=== PATIENT | male | born 1985 | race African-American/Black ===

== ENCOUNTER 2020-01-25 12:09 | Emergency (ER) | payer SELFPAY ==
--- NOTE | 2020-01-25 13:04 | RAD REPORT ---
EXAM DESCRIPTION: CT - Stone Protocol - 01/25/2020 12:55 pm CLINICAL HISTORY: FLANK PAIN COMPARISON: No comparisons TECHNIQUE: Axial 3 mm thick images were obtained without oral or IV contrast. The qhlxz-cp-reys span s the entirety of the system including uppermost abdomen and lung bases. All CT scans are performed using dose optimization technique as appropriate and may include automated exposure control or mA/KV adjustment according to patient size. FINDINGS: Mild dilatation of the proximal right collecting system is present secondary to a 3 mm obs tructing calculus in the proximal right ureter. From a KUB projection the obstructing calculus is preethi ng the right lateral margin L3-4 disc space. No other obstructing or nonobstructing calculi. No left- sided hydronephrosis. No suspicious renal masses. Isodense masses and pyelonephritis are not excluded on a stone protocol CT scan. No significant adrenal finding. Contracted urinary bladder shows no dennis picious findings. Imaged portions of the liver, spleen and pancreas show no suspicious findings on non-contrast imaging . No gallbladder or biliary tree abnormality identified. No suspicious bowel findings. No hernia, mass or bulky lymphadenopathy noted. No free air, free fluid or inflammatory stranding. No significant bony abnormality. IMPRESSION: Mild hydronephrosis of the proximal right collecting system secondary to a 3 mm proximal ureter stone. Isodense masses and pyelonephritis are not excluded on stone protocol technique.
[2020-01-25 13:06] LABS: Absolute Lymphocytes (CBC) 2.3 K/uL (0.7-4.9); Hematocrit 41.2 % (39.6-49.0); Lymphocytes % 38.4 % (15.3-44.8); MPV 9.3 fL (7.6-11.3); RBC Red Blood Cell Count 4.62 M/uL (4.33-5.43)
[2020-01-25] MEDS ORDERED: ONDANSETRON 4 MG/2 ML VIAL ONE ×2 (13:12→16:54)
[2020-01-25] MEDS ORDERED: MORPHINE 4 MG/ML SYR ONE (13:12)
[2020-01-25] MEDS ORDERED: KETOROLAC 30 MG/ML INJ ONE (13:28)
[2020-01-25] MEDS ORDERED: TAMSULOSIN 0.4 MG SR CAP ONE (13:28)
[2020-01-25] MEDS ORDERED: MAGNESIUM SULFATE 1 gm IVPB 1 GM/100 ML BAG IV ONE (13:28)
[2020-01-25 13:35] LABS: Urine Bacteria <20 /HPF (NONE SEEN); Urine Culture Reflex Order NOT NEEDED; Urine RBC TNTC /HPF (NONE SEEN)
[2020-01-25 13:41] LABS: Bilirubin Direct 0.1 mg/dL (0-0.2); Bilirubin Total 0.6 mg/dL (0.2-1.0); Potassium 3.8 mmol/L (3.5-5.1); Protein, Total 7.9 g/dL (6.4-8.2)
[2020-01-25 14:16] LABS: Urine Blood 3+ (NEG); Urine Glucose NEGATIVE (NEG); Urine Protein 2+ (NEG); Urine Specific Gravity 1.025 (1.005-1.030)
[2020-01-25] MEDS ORDERED: MEPERIDINE HCL 50 MG/ML ONE (14:48)
--- NOTE | 2020-01-25 16:27 | ER ---
Nurse's Notes [facility] Name: Gautam Mensah Age: 34 yrs Sex: Male : 1985 Arrival Date: 01/25/2020 Time: 12:11 Bed 26 Private MD: Diagnosis: Calculus of ureter Presentation: 01/24 12:24 Chief complaint: Patient states: R flank pain with N/V for 1 day. Coronavirus screen: ll1 Client denies travel out of the [place] in the last 14 days. At this time, the client does not indicate any symptoms associated with coronavirus-19. Ebola Screen: Patient denies travel to an Ebola-affected area in the 21 days before illness onset. Initial Sepsis Screen: Does the patient meet any 2 criteria? No. Patient's initial sepsis screen is negative. Risk Assessment: Do you want to hurt yourself or someone else? Patient reports no desire to harm self or others. Onset of symptoms was January 25, 2020. 12:24 Method Of Arrival: Wheelchair ll1 12:24 Acuity: ADNIELLE 3 ll1 12:49 Initial Sepsis Screen: Does the patient have a suspected source of infection? No. ca1 Patient's initial sepsis screen is negative. Historical: - Allergies: 12:25 No Known Allergies; ll1 - PSHx: 12:25 Fracture repair right hand; ll1 - Immunization history:: Flu vaccine is not up to date. - Social history:: Smoking status: Patient denies any tobacco usage or history of. - Family history:: not pertinent. - Hospitalizations: : No recent hospitalization is reported. Screenin:30 Abuse screen: Denies threats or abuse. Denies injuries from another. Nutritional ca1 screening: No deficits noted. Tuberculosis screening: No symptoms or risk factors identified. Fall Risk IV access (20 points). Assessment: 12:30 General: Appears in no apparent distress. uncomfortable, Behavior is cooperative, ca1 appropriate for age. Pain: Complains of pain in right low back Pain does not radiate. Pain currently is 8 out of 10 on a pain scale. at worst was 10 out of 10 on a pain scale. Pain began 30 min ago. Is continuous. Neuro: Level of Consciousness is awake, alert, obeys commands, Oriented to person, place, time, situation. Cardiovascular: Heart tones S1 S2 present Capillary refill < 3 seconds Patient's skin is warm and dry. Respiratory: Airway is patent Respiratory effort is even, unlabored, Respiratory pattern is regular, symmetrical. GI: Abdomen is flat, non-distended, Bowel sounds present X 4 quads. Abd is soft and non tender X 4 quads. Reports nausea, vomiting. : No signs and/or symptoms were reported regarding the genitourinary system. EENT: No signs and/or symptoms were reported regarding the EENT system. Derm: Skin is intact, is healthy with good turgor, Skin is pink, warm \T\ dry. 12:30 Musculoskeletal: Circulation, motion, and sensation intact. Capillary refill < 3 ca1 seconds. 13:41 Reassessment: Patient appears in no apparent distress at this time. Patient and/or ca1 family updated on plan of care and expected duration. Pain level reassessed. Patient is alert, oriented x 3, equal unlabored respirations, skin warm/dry/pink. 14:40 Reassessment: Patient appears in no apparent distress at this time. Patient and/or ca1 family updated on plan of care and expected duration. Pain level reassessed. Patient is alert, oriented x 3, equal unlabored respirations, skin warm/dry/pink. 15:41 Reassessment: Patient appears in no apparent distress at this time. Patient and/or ca1 family updated on plan of care and expected duration. Pain level reassessed. Patient is alert, oriented x 3, equal unlabored respirations, skin warm/dry/pink. Patient states feeling better. Patient states symptoms have improved. Vital Signs: 12:24 BP 135 / 95; Pulse 75; Resp 19; Temp 97.1; Pulse Ox 100% ; Weight 90.72 kg; Height 6 ll1 ft. 0 in. (182.88 cm); Pain 8/10; 13:00 BP 133 / 87; Pulse 49; Resp 18 S; Pulse Ox 100% on R/A; ca1 13:41 BP 129 / 79; Pulse 47; Resp 15 S; Pulse Ox 99% on R/A; ca1 14:21 Pain 7/10; ca1 15:04 BP 119 / 74; Pulse 56; Resp 16; Pulse Ox 97% on R/A; mt 15:42 Pain 2/10; ca1 15:42 BP 121 / 68; Pulse 74; Resp 16 S; Pulse Ox 99% on R/A; Pain 2/10; ca1 16:21 BP 140 / 76; Pulse 62; Resp 16; Pulse Ox 98% on R/A; mt 12:24 Body Mass Index 27.12 (90.72 kg, 182.88 cm) ll1 ED Course: 12:11 Patient arrived in ED. mr 12:25 Triage completed. ll1 12:26 Arm band placed on Patient placed in an exam room, on a stretcher. ll1 12:28 Nikita Keating MD is Attending Physician. rn 12:30 Patient has correct armband on for positive identification. Placed in gown. Bed in low ca1 position. Call light in reach. Side rails up X 1. Pulse ox on. NIBP on. Warm blanket given. 12:33 Radha Benton, CARLOS is Primary Nurse. ca1 12:42 No provider procedures requiring assistance completed. Initial lab(s) drawn, by sd, ca1 sent to lab. Inserted saline lock: 20 gauge in left antecubital area, using aseptic technique. Blood collected. 12:55 CT Stone Protocol In Process Unspecified. EDMS 17:24 IV discontinued, intact, bleeding controlled, No redness/swelling at site. hb Administered Medications: 13:00 Drug: Zofran (Ondansetron) 4 mg Route: IVP; Site: left antecubital; ca1 13:29 Follow up: Response: No adverse reaction; Nausea is decreased ca1 13:04 Drug: morphine 4 mg {Note: rass 0.} Route: IVP; Site: left antecubital; ca1 13:29 Follow up: Response: No adverse reaction; Pain is unchanged, physician notified; RASS: ca1 Alert and Calm (0) 13:09 Drug: Flomax 0.4 mg Route: PO; ca1 14:21 Follow up: Response: No adverse reaction; Pain is decreased ca1 13:10 Drug: TORadol - Ketorolac 15 mg Route: IVP; Site: left antecubital; ca1 14:21 Follow up: Pain 7/10 Adult; Response: No adverse reaction; Pain is decreased ca1 13:12 Drug: Magnesium Sulfate 1 grams Route: IVPB; Infused Over: 1 hrs; Site: left ca1 antecubital; 14:21 Follow up: Response: No adverse reaction; IV Status: Completed infusion; IV Intake: ca1 100ml 14:37 Drug: Demerol 50 mg {Note: rass 0.} Route: IVP; Site: left antecubital; ca1 15:42 Follow up: Pain 2/10 Adult; Response: No adverse reaction; Pain is decreased; RASS: ca1 Alert and Calm (0) 16:42 Drug: Zofran (Ondansetron) 4 mg Route: IVP; Site: left antecubital; ca1 17:20 Follow up: Response: No adverse reaction; Nausea is decreased ca1 16:44 Drug: [place] 10 mg-325 mg 1 tabs {Note: rass 0.} Route: PO; ca1 17:20 Follow up: Response: No adverse reaction; Pain is decreased; RASS: Alert and Calm (0) ca1 Intake: 14:21 IV: 100ml; Total: 100ml. ca1 Outcome: 16:26 Discharge ordered by . rn 17:24 Discharged to home ambulatory, with significant other. 17:24 Condition: stable 17:24 Discharge instructions given to patient, significant other, Instructed on discharge instructions, follow up and referral plans. medication usage, Demonstrated understanding of instructions, follow-up care, medications, Prescriptions given X 3. 17:24 Patient left the ED. hb Signatures: Dispatcher [employer] EDNM Belinda Oreilly Roman, MD MD rn Baxter, Heather, RN RN hb Thompson, Moriah mt Acob, Cheryl, RN RN ca1 Lewis, Lynsay, RN RN ll1
--- NOTE | 2020-01-25 16:28 | EDPHYS ---
Physician Documentation [facility] Name: Gautam Mensah Age: 34 yrs Sex: Male : 1985 Arrival Date: 01/25/2020 Time: 12:11 Bed 26 Private MD: ED Physician Nikita Keating HPI: 01/24 12:35 This 34 yrs old Black Male presents to ER via Wheelchair with complaints of Abdominal rn Pain. 12:35 The patient presents with abdominal pain right lower quadrant. Onset: The rn symptoms/episode began/occurred this morning. The symptoms radiate to pelvis. The symptoms are described as intermittent, sharp. Modifying factors: The symptoms are alleviated by nothing, the symptoms are aggravated by nothing. Severity of pain: At its worst the pain was moderate in the emergency department the pain is unchanged. The patient has not experienced similar symptoms in the past. The patient has not recently seen a physician. Historical: - Allergies: 12:25 No Known Allergies; ll1 - PSHx: 12:25 Fracture repair right hand; ll1 - Immunization history:: Flu vaccine is not up to date. - Social history:: Smoking status: Patient denies any tobacco usage or history of. - Family history:: not pertinent. - Hospitalizations: : No recent hospitalization is reported. ROS: 12:35 Constitutional: Negative for fever, chills, and weight loss, Eyes: Negative for injury, rn pain, redness, and discharge, Cardiovascular: Negative for chest pain, palpitations, and edema, Respiratory: Negative for shortness of breath, cough, wheezing, and pleuritic chest pain, Abdomen/GI: + abd pain and nausea Back: + right flank pain : Negative for injury, bleeding, discharge, and swelling, MS/Extremity: Negative for injury and deformity, Skin: Negative for injury, rash, and discoloration, Neuro: Negative for headache, weakness, numbness, tingling, and seizure. Exam: 12:35 Constitutional: This is a well developed, well nourished patient who is awake, alert, rn and in no acute distress. Head/Face: Normocephalic, atraumatic. Cardiovascular: Regular rate and rhythm. No pulse deficits. Respiratory: No increased work of breathing, no retractions or nasal flaring. Abdomen/GI: soft, mild RLQ tenderness Back: No spinal tenderness. Skin: Warm, dry MS/ Extremity: Pulses equal, no cyanosis. Neuro: Awake and alert, GCS 15 Vital Signs: 12:24 BP 135 / 95; Pulse 75; Resp 19; Temp 97.1; Pulse Ox 100% ; Weight 90.72 kg; Height 6 ll1 ft. 0 in. (182.88 cm); Pain 8/10; 13:00 BP 133 / 87; Pulse 49; Resp 18 S; Pulse Ox 100% on R/A; ca1 13:41 BP 129 / 79; Pulse 47; Resp 15 S; Pulse Ox 99% on R/A; ca1 14:21 Pain 7/10; ca1 15:04 BP 119 / 74; Pulse 56; Resp 16; Pulse Ox 97% on R/A; mt 15:42 Pain 2/10; ca1 15:42 BP 121 / 68; Pulse 74; Resp 16 S; Pulse Ox 99% on R/A; Pain 2/10; ca1 16:21 BP 140 / 76; Pulse 62; Resp 16; Pulse Ox 98% on R/A; mt 12:24 Body Mass Index 27.12 (90.72 kg, 182.88 cm) ll1 MDM: 12:28 Patient medically screened. rn 16:25 Differential diagnosis: non-specific abd pain, Ureterolithiasis. Data reviewed: vital rn signs, nurses notes, lab test result(s), radiologic studies, CT scan, and as a result, I will discharge patient. Counseling: I had a detailed discussion with the patient and/or guardian regarding: the historical points, exam findings, and any diagnostic results supporting the discharge/admit diagnosis, lab results, radiology results, the need for outpatient follow up, to return to the emergency department if symptoms worsen or persist or if there are any questions or concerns that arise at home. Special discussion: Based on the patient's Hx, exam, and Dx evaluation, there is no indication for emergent surgery or inpatient Tx. It is understood by the patient/guardian that if the Sx's persist or worsen they need to return immediately for re-evaluation. I discussed with the patient/guardian in detail that at this point there is no indication for admission to the hospital. It is understood, however, that if the symptoms persist or worsen the patient needs to return immediately for re-evaluation. ED course: Pt markedly improved, will dc home with pain medication and return precautions. . 01/24 12:29 Order name: Basic Metabolic Panel; Complete Time: 14:33 rn 01/24 12:29 Order name: CBC with Diff; Complete Time: 14:33 rn 01/24 12:29 Order name: Hepatic Function; Complete Time: 14:33 rn 01/24 12:29 Order name: Lipase; Complete Time: 14:33 rn 01/24 12:29 Order name: Urine Microscopic Only; Complete Time: 14:33 rn 01/24 13:01 Order name: Urine Dipstick--Ancillary (enter results) bd 01/24 12:29 Order name: CT Stone Protocol; Complete Time: 13:05 rn 01/24 13:01 Order name: Urine Dipstick-Ancillary; Complete Time: 14:33 EDMS 01/24 12:29 Order name: IV Saline Lock; Complete Time: 12:47 rn 01/24 12:29 Order name: Labs collected and sent; Complete Time: 12:47 rn 01/24 12:29 Order name: Urine Dipstick-Ancillary (obtain specimen); Complete Time: 12:57 rn Administered Medications: 13:00 Drug: Zofran (Ondansetron) 4 mg Route: IVP; Site: left antecubital; ca1 13:29 Follow up: Response: No adverse reaction; Nausea is decreased ca1 13:04 Drug: morphine 4 mg {Note: rass 0.} Route: IVP; Site: left antecubital; ca1 13:29 Follow up: Response: No adverse reaction; Pain is unchanged, physician notified; RASS: ca1 Alert and Calm (0) 13:09 Drug: Flomax 0.4 mg Route: PO; ca1 14:21 Follow up: Response: No adverse reaction; Pain is decreased ca1 13:10 Drug: TORadol - Ketorolac 15 mg Route: IVP; Site: left antecubital; ca1 14:21 Follow up: Pain 7/10 Adult; Response: No adverse reaction; Pain is decreased ca1 13:12 Drug: Magnesium Sulfate 1 grams Route: IVPB; Infused Over: 1 hrs; Site: left ca1 antecubital; 14:21 Follow up: Response: No adverse reaction; IV Status: Completed infusion; IV Intake: ca1 100ml 14:37 Drug: Demerol 50 mg {Note: rass 0.} Route: IVP; Site: left antecubital; ca1 15:42 Follow up: Pain 2/10 Adult; Response: No adverse reaction; Pain is decreased; RASS: ca1 Alert and Calm (0) 16:42 Drug: Zofran (Ondansetron) 4 mg Route: IVP; Site: left antecubital; ca1 17:20 Follow up: Response: No adverse reaction; Nausea is decreased ca1 16:44 Drug: [place] 10 mg-325 mg 1 tabs {Note: rass 0.} Route: PO; ca1 17:20 Follow up: Response: No adverse reaction; Pain is decreased; RASS: Alert and Calm (0) ca1 Disposition: 01/25/20 16:26 Discharged to Home. Impression: Calculus of ureter. - Condition is Stable. - Discharge Instructions: Kidney Stones, Dietary Guidelines to Help Prevent Kidney Stones. - Prescriptions for Zofran ODT 4 mg Oral tablet,disintegrating - place 1 tablet by TRANSLINGUAL route every 8 hours As needed; 20 tablet. Tylenol- Codeine #3 300-30 mg Oral Tablet - take 2 tablet by ORAL route every 6 hours As needed; 20 tablet. Flomax 0.4 mg Oral Capsule, Sust. Release 24 hr - take 1 capsule by ORAL route once daily Stop taking once you feel like you have passed the kidney stone, can cause low blood pressure and dizziness.; 5 capsule. - Medication Reconciliation Form, Thank You Letter, Antibiotic Education, Prescription Opioid Use form. - Follow up: Private Physician; When: As needed; Reason: Recheck today's complaints, Re-evaluation by your physician. - Problem is new. - Symptoms have improved. Signatures: Dispatcher [employer] EDMS Nikita Keating MD MD rn Baxter, Heather, RN RN Serenity, Radha RN RN ca1 Todd Kennedy RN RN ll1 Corrections: (The following items were deleted from the chart) 17:24 16:26 01/25/2020 16:26 Discharged to Home. Impression: Calculus of ureter. Condition is hb Stable. Forms are Medication Reconciliation Form, Thank You Letter, Antibiotic Education, Prescription Opioid Use. Follow up: Private Physician; When: As needed; Reason: Recheck today's complaints, Re-evaluation by your physician. Problem is new. Symptoms have improved. rn
[2020-01-25] MEDS ORDERED: HYDROCODONE/APAP 10/325 TAB ONE (16:54)
[2020-01-25 18:45] VITALS: TEMP 97.1
[2020-01-25 18:53] VITALS: BP 140/76; O2SAT 98
== END 2020-01-25 17:24 | disposition home or self-care (01) ==
LOC: ER 12:09
DX: N20.1 Calculus of ureter (principal)
CPT/HCPCS: 36415; 74176; 76377; 80048; 80076; 81003; 81015; 83690; 85025; 96365; 96375; 99284; J2175; J2405; J3475

== ENCOUNTER 2021-11-25 08:15 | Emergency (ER) | payer BC, SELFPAY ==
--- OUTSIDE RECORDS SUMMARY | 2021-11-25 08:19 | XMS REPORT | Continuity of Care Document ---
:1985 Author Organization [facility] t Address [address] [place] [address] Care Team Providers Name Role Phone MANDYLEOBARDOJUAN Hopkins Primary Care Physician Unavailable MARIBELL CORREA Attending Clinician Unavailable Maribell Last Attending Clinician Payers Payer Name Policy Type Policy Number Effective Date Expiration Date S lety [facility] - [id number] 2021 00:00:00 OUT OF STATE Problems Condition Condition Condition Status Onset Resolution Last Treating Co mments Source Name Details Category Date Date Treatment Clinician Date Chronic Chronic Disease Active [facility] pain of pain of 4- [place] [facility] Right Right Disease Active [facility] groin pain groin pain 4- it y of 00:00: [address] Wellness Wellness Disease Active Unive rs examinatio examinatio 2 it y of n n 00:00: [address] Need for Need for Disease Active Unive rs hepatitis hepatitis 2 ity of C C 00:00: [place] screening screening [facility] jaime test test Branch Chronic Chronic Disease Active 2020-04 Univers cough cough 04-22 ity of 00:00: [place] [address] Medical Branch Sprain of Sprain of Disease Active 2020-04 Uni vers groin, groin, 1 [place] bilateral [place] [facility] [place] Allergies, Adverse Reactions, Alerts Allergy Allergy Status Severity Reaction(s) Onset Inactive Treating Comm ents Source Name Type Date Date Clinician NO KNOWN Drug Active Univers ALLERGIE Class ity of S [place] [facility] [place] Social History Social Habit Start Date Stop Date Quantity Comments Source History SDOH University o f Alcohol Frequency [place] [facility] History SDOH University o f Alcohol Std [place] [facility] Drinks Branch History SDOH University o f Alcohol Binge [place] [facility] Exposure to Not sure University SARS-CoV-2 [facility] (event) Branch Alcohol intake 2021-07-21 2021-07-21 Current drinker Unive rsity of 00:00:00 00:00:00 of alcohol [place] [facility] (finding) Branch Tobacco use and 2021-02-20 2021-02-20 Never used Universit y of exposure 00:00:00 00:00:00 [facility] Alcohol Comment 2021-02-20 2021-02-20 2 drinks per Univers ity of 00:00:00 00:00:00 month [facility] Sex Ass[birth year] At [birth year] Universit y of 00:00:00 00:00:00 [facility] Smoking Status Start Date Stop Date Source Never smoker [facility] Medications Ordered Filled Start Stop Current Ordering Indication Dosage Frequency Signature Comments Components Source Medication Medication Date Date Medication? Clinician (SIG) Name Name pantoprazol 2021- No [id number] 40mg Take 1 Univers e 40 mg EC 07-21 [id number] tablet by i ty of tablet 00:00: 04:59 mouth [place] 00 :00 daily for Medical 30 days. Branch ibuprofen 2021- No [id number] 600mg Take 1 Univers 600 mg 07-21 [id number] tablet by ity o f tablet 00:00: 04:59 mouth [place] 00 :00 every 6 Medical (six) Branch hours as needed for Temp > 38.5 C for up to 14 days. meloxicam Yes [id number] 15mg Take 1 Univers 15 mg 06-02 [id number] tablet by ity of tablet 00:00: mouth once [place] 00 daily as Medical needed for Branch Pain or Inflammati on. Take with food. multivit-mi 2020-04 Yes Take by Uni vers n-folic-vit 04-22 mouth. ity of K-lycop 13:40: [place] (ONE-A-DAY 22 Medical MEN'S Branch MULTIVITAMI N) 400-20-300 mcg Tab BIOTIN ORAL 2020-04 Yes Take by Uni vers 04-22 mouth. ity of 13:40: [address] SHARK 2020-04 Yes Take by Univers CARTILAGE 04-22 mouth. ity of ORAL 13:40: [address] montelukast 2020-04 Yes [id number] 10mg Take 1 Univers 10 mg 04-22 tablet by ity of tablet 00:00: mouth [place] 00 every Medical evening. Branch Immunizations Ordered Filled Immunization Date Status Comments [facility] e Immunization Name Name TDAP 2019-06-02 Completed University of 00:00:00 [facility] Vital Signs Vital Name Observation Time Observation Value Comments Source Systolic blood 2021-07-21 15:43:00 136 mm[facility]Hg[facility] Diastolic blood 2021-07-21 15:43:00 89 mm[Hg] [facility] Heart rate 2021-07-21 15:43:00 57 /min [facility] Body height 2021-07-21 15:43:00 182.9 cm [facility] Body weight 2021-07-21 15:43:00 90.266 kg [facility] BMI 2021-07-21 15:43:00 26.99 kg/m2 [facility] Oxygen saturation 2021-07-21 15:43:00 99 /min [facility] in Arterial blood Medical Br anch by Pulse oximetry Procedures This patient has no known procedures. Encounters Start End Encounter Admission Attending Care Care Encounter Source Date/Time Date/Time Type Type Clinicians Facility Department ID 2021-07-21 2021-07-21 Outpatient R [facility] [id number] Univers 11:28:10 23:59:00 MARIBELL [facility] 2021-07-21 2021-07-21 Office CAT Correa [id number] Univers 11:00:00 11:25:43 Visit Maribell [facility] [id number] it y of FATU[place] [id number] Abhijeet as RADHA?BLEA [id number] [place] dicnithin [address] MEDICAL OFFICE BUILDING Results This patient has no known results.
[2021-11-25 08:59] LABS: Urine Blood Negative (Negative); Urine Glucose Negative (Negative); Urine Protein Negative (Negative); Urine Specific Gravity >=1.030 (1.005-1.030)
[2021-11-25 09:17] LABS: Absolute Lymphocytes (CBC) 1.8 K/uL (0.7-4.9); Hematocrit 40.7 % (39.6-49.0); MPV 8.9 fL (7.6-11.3); RBC Red Blood Cell Count 4.57 M/uL (4.33-5.43)
[2021-11-25 09:38] LABS: Potassium 3.7 mmol/L (3.5-5.1)
[2021-11-25 09:46] LABS: Barbiturates NEGATIVE (NEGATIVE); Benzodiazepines NEGATIVE (NEGATIVE); Cocaine NEGATIVE (NEGATIVE); METHAMPHETAM NEGATIVE (NEGATIVE); Methadone NEGATIVE (NEGATIVE); Opiates NEGATIVE (NEGATIVE); Phencyclidine NEGATIVE (NEGATIVE); THC Cannibis NEGATIVE (NEGATIVE)
--- NOTE | 2021-11-25 09:49 | EDPHYS ---
Physician Documentation [facility] Name: Gautam Mensah Age: 36 yrs Sex: Male : 1985 Arrival Date: 11/25/2021 Time: :18 Bed 10 Private MD: ANDERSON Physician Jose Alejandro Blakely HPI: 11/25 09:14 This 36 yrs old Black Male presents to ER via Ambulatory with complaints of having an jl9 episode of palpitation last night that last approximately 30 seconds. No symptoms currently. . 09:14 Onset: The symptoms/episode began/occurred yesterday. Associated signs and symptoms: jl9 Pertinent negatives: chest pain, shortness of breath. The patient has not experienced similar symptoms in the past. Historical: - Allergies: 08:38 No Known Allergies; iw - Home Meds: 08:38 None [Active]; iw - PMHx: 08:38 None; iw - PSHx: 08:38 None; iw - Immunization history:: Adult Immunizations up to date. - Social history:: Smoking status: Patient denies any tobacco usage or history of. ROS: 09:15 Constitutional: Negative for fever, chills, and weight loss, Eyes: Negative for injury, jl9 pain, redness, and discharge, ENT: Negative for injury, pain, and discharge, Neck: Negative for injury, pain, and swelling. 09:15 Respiratory: Negative for shortness of breath, cough, wheezing, and pleuritic chest pain, Abdomen/GI: Negative for abdominal pain, nausea, vomiting, diarrhea, and constipation, Back: Negative for injury and pain, : Negative for injury, bleeding, discharge, and swelling, MS/Extremity: Negative for injury and deformity, Skin: Negative for injury, rash, and discoloration, Neuro: Negative for headache, weakness, numbness, tingling, and seizure, Psych: Negative for depression, anxiety, suicide ideation, homicidal ideation, and hallucinations, Allergy/Immunology: Negative for hives, rash, and allergies, Endocrine: Negative for neck swelling, polydipsia, polyuria, polyphagia, and marked weight changes, Hematologic/Lymphatic: Negative for swollen nodes, abnormal bleeding, and unusual bruising. 09:15 Cardiovascular: Positive for palpitations. Exam: 09:16 Constitutional: This is a well developed, well nourished patient who is awake, alert, jl9 and in no acute distress. Head/Face: Normocephalic, atraumatic. Eyes: Pupils equal round and reactive to light, extra-ocular motions intact. Lids and lashes normal. Conjunctiva and sclera are non-icteric and not injected. Cornea within normal limits. Periorbital areas with no swelling, redness, or edema. ENT: Mucous membranes moist. Neck: Trachea midline, no thyromegaly or masses palpated, and no cervical lymphadenopathy. Supple, full range of motion without nuchal rigidity, or vertebral point tenderness. No Meningismus. Chest/axilla: Normal chest wall appearance and motion. Nontender with no deformity. No lesions are appreciated. Cardiovascular: Regular rate and rhythm with a normal S1 and S2. No gallops, murmurs, or rubs. Normal PMI, no JVD. No pulse deficits. Respiratory: Lungs have equal breath sounds bilaterally, clear to auscultation and percussion. No rales, rhonchi or wheezes noted. No increased work of breathing, no retractions or nasal flaring. Abdomen/GI: Soft, non-tender, with normal bowel sounds. No distension or tympany. No guarding or rebound. No evidence of tenderness throughout. Back: No spinal tenderness. No costovertebral tenderness. Full range of motion. Skin: Warm, dry with normal turgor. Normal color with no rashes, no lesions, and no evidence of cellulitis. MS/ Extremity: Pulses equal, no cyanosis. Neurovascular intact. Full, normal range of motion. Neuro: Awake and alert, GCS 15, oriented to person, place, time, and situation. Cranial nerves II-XII grossly intact. Motor strength 5/5 in all extremities. Sensory grossly intact. Cerebellar exam normal. Normal gait. Psych: Awake, alert, with orientation to person, place and time. Behavior, mood, and affect are within normal limits. Vital Signs: 08:36 BP 129 / 90; Pulse 58; Resp 16; Temp 97.2; Pulse Ox 100% on R/A; iw 09:37 BP 127 / 85; Pulse 58; Resp 16; Pulse Ox 100% on R/A; Pain 0/10; bm7 MDM: 08:40 Patient medically screened. jl9 09:17 Data reviewed: vital signs, nurses notes, lab test result(s), EKG. Test interpretation: jl9 by ED physician or midlevel provider: ECG, SB 58bpm. 09:49 Counseling: I had a detailed discussion with the patient and/or guardian regarding: the jl9 historical points, exam findings, and any diagnostic results supporting the discharge/admit diagnosis, lab results, the need for outpatient follow up, to return to the emergency department if symptoms worsen or persist or if there are any questions or concerns that arise at home. 11/25 08:41 Order name: Basic Metabolic Panel; Complete Time: 09:48 jl9 11/25 08:41 Order name: CBC with Diff; Complete Time: 09:48 jl9 11/25 08:41 Order name: Troponin HS; Complete Time: 09:48 jl9 11/25 08:41 Order name: XRAY Chest (1 view) jl9 11/25 08:41 Order name: UDS; Complete Time: 09:48 jl9 11/25 08:59 Order name: Urine Dipstick-Ancillary; Complete Time: 09:48 EDMS 11/25 08:41 Order name: EKG; Complete Time: 08:41 jl9 11/25 08:41 Order name: Cardiac monitoring; Complete Time: 08:53 jl9 11/25 08:41 Order name: EKG - Nurse/Tech; Complete Time: 08:51 jl9 11/25 08:41 Order name: IV Saline Lock; Complete Time: 08:53 jl9 11/25 08:41 Order name: Labs collected and sent; Complete Time: 08:53 jl9 11/25 08:41 Order name: Urine Dipstick-Ancillary (obtain specimen); Complete Time: 09:12 jl9 Administered Medications: No medications were administered Disposition Summary: 11/25/21 09:48 Discharge Ordered Location: Home jl9 Condition: Stable jl9 Diagnosis - Palpitations jl9 Followup: jl9 - With: Private Physician - When: 1 - 2 days - Reason: Recheck today's complaints, Continuance of care, Re-evaluation by your physician Discharge Instructions: - Discharge Summary Sheet jl9 - Palpitations jl9 Forms: - Medication Reconciliation Form jl9 - Thank You Letter jl9 - Antibiotic Education jl9 - Prescription Opioid Use jl9 Signatures: Dispatcher [employer] EDLinh Barrett RN RN Billie Busby, RN RN bm7 Som Rausch jl9
--- NOTE | 2021-11-25 09:49 | ER ---
Nurse's Notes [facility] Name: Gautam Mensah Age: 36 yrs Sex: Male : 1985 Arrival Date: 11/25/2021 Time: 08:18 Bed 10 Private MD: Diagnosis: Palpitations Presentation: 11/25 08:36 Chief complaint: Patient states: this morning couldn't control my heart beat, I felt iw like I was gonna pass out, I had no strength , denies chest pain. Coronavirus screen: At this time, the client does not indicate any symptoms associated with coronavirus-19. Ebola Screen: Patient negative for fever greater than or equal to 101.5 degrees Fahrenheit, and additional compatible Ebola Virus Disease symptoms Patient denies exposure to infectious person. Patient denies travel to an Ebola-affected area in the 21 days before illness onset. No symptoms or risks identified at this time. Initial Sepsis Screen: Does the patient meet any 2 criteria? No. Patient's initial sepsis screen is negative. Does the patient have a suspected source of infection? No. Patient's initial sepsis screen is negative. Risk Assessment: Do you want to hurt yourself or someone else? Patient reports no desire to harm self or others. Onset of symptoms was November 25, 2021. 08:36 Method Of Arrival: Ambulatory iw 08:36 Acuity: DANIELLE 3 iw Historical: - Allergies: 08:38 No Known Allergies; iw - Home Meds: 08:38 None [Active]; iw - PMHx: 08:38 None; iw - PSHx: 08:38 None; iw - Immunization history:: Adult Immunizations up to date. - Social history:: Smoking status: Patient denies any tobacco usage or history of. Screenin:37 Abuse screen: Denies threats or abuse. Nutritional screening: No deficits noted. bm7 Tuberculosis screening: No symptoms or risk factors identified. Fall Risk None identified. Assessment: 09:37 Reassessment: Patient and/or family updated on plan of care and expected duration. Pain bm7 level reassessed. Patient is alert, oriented x 3, equal unlabored respirations, skin warm/dry/pink. General: Appears in no apparent distress. comfortable, well groomed, well developed, Behavior is calm, cooperative, appropriate for age. Pain: Denies pain. Neuro: No deficits noted. Cardiovascular: Reports palpitations, shortness of breath, Denies chest pain, Capillary refill is > 3 seconds in bilateral fingers Patient's skin is warm and dry. Rhythm is sinus bradycardia Chest pain is denied. Respiratory: No deficits noted. GI: No deficits noted. No signs and/or symptoms were reported involving the gastrointestinal system. : No deficits noted. No signs and/or symptoms were reported regarding the genitourinary system. EENT: No deficits noted. No signs and/or symptoms were reported regarding the EENT system. Derm: No deficits noted. No signs and/or symptoms reported regarding the dermatologic system. Musculoskeletal: No deficits noted. No signs and/or symptoms reported regarding the musculoskeletal system. 09:58 Pain: Denies pain. bm7 09:58 Pain: Pain does not radiate. Pain began 1 hour ago. bm7 Vital Signs: 08:36 BP 129 / 90; Pulse 58; Resp 16; Temp 97.2; Pulse Ox 100% on R/A; iw 09:37 BP 127 / 85; Pulse 58; Resp 16; Pulse Ox 100% on R/A; Pain 0/10; bm7 ED Course: 08:18 Patient arrived in ED. am2 08:38 Triage completed. iw 08:38 Arm band placed on. iw 08:40 Som Rausch is PHCP. jl9 08:40 Jose Alejandro Blakely MD is Attending Physician. jl9 08:47 Blilie Vazquez, RN is Primary Nurse. bm7 08:52 EKG done, by ED staff, reviewed by Som Rausch. em1 09:37 Patient has correct armband on for positive identification. Bed in low position. Call bm7 light in reach. Adult w/ patient. Client placed on continuous cardiac and pulse oximetry monitoring. NIBP monitoring applied. property assessment monitor on. Warm blanket given. Assisted to bathroom. 09:37 Initial lab(s) drawn, by me, sent to lab. Urine collected: clean catch specimen, clear. bm7 Inserted saline lock: 20 gauge in left antecubital area, using aseptic technique. Blood collected. Patient maintains SpO2 saturation greater than 95% on room air. 09:53 XRAY Chest (1 view) In Process Unspecified. EDMS 09:58 No provider procedures requiring assistance completed. IV discontinued, intact, bm7 bleeding controlled, No redness/swelling at site. Pressure dressing applied. Administered Medications: No medications were administered Medication: 09:37 VIS not applicable for this client. bm7 Outcome: 09:48 Discharge ordered by . carmella 09:58 Discharged to home ambulatory, with family. bm7 09:58 Condition: improved 09:58 Discharge instructions given to patient, family, Instructed on discharge instructions, follow up and referral plans. Demonstrated understanding of instructions, follow-up care. 09:58 Patient left the ED. bm7 Signatures: Dispatcher [employer] EDLinh Barrett, RN RN Romeo Chapman em1 Ruth Hull Brittany, RN RN bm7 Som Rausch9
[2021-11-25 10:20] VITALS: TEMP 97.2; O2SAT 100
[2021-11-25 10:30] VITALS: BP 127/85
--- NOTE | 2021-11-25 10:59 | RAD REPORT ---
EXAM DESCRIPTION: RAD - Chest Single View - 11/25/2021 9:51 am CLINICAL HISTORY: CHEST PAIN Chest pain. COMPARISON: No comparisons FINDINGS: Portable technique limits examination quality. The lungs are grossly clear. The heart is normal in size. No displaced fractures. IMPRESSION: No acute intrathoracic process suspected.
--- NOTE | 2021-11-27 13:50 | EKG ---
Test Date: 2021-11-25 Test Time: 08:46:43 Personal Loan Specialist: TAMANNA MEASUREMENT RESULTS: Intervals: Rate: 58 OR: 166 QRSD: 92 QT: 400 QTc: 392 [place]: P: 40 OR: 166 QRS: 63 T: 44 INTERPRETIVE STATEMENTS: Sinus bradycardia Otherwise normal ECG No previous ECG available for comparison Electronically Signed On 11-27-21 13:46:42 CDT by Guillermo Pierson
== END 2021-11-25 09:58 | disposition home or self-care (01) ==
LOC: ER 08:15
DX: R00.2 Palpitations (principal)
CPT/HCPCS: 36415; 71045; 80048; 80307; 81003; 84484; 85025; 93005; 99285